=== PATIENT | female | born 1955 | race Caucasian/White ===

== ENCOUNTER → 2017-09-05 09:56 | Outpatient (CLI) | payer BC, SELFPAY ==
--- NOTE | 2017-09-05 | DI.MG.S_ITS ---
BILATERAL DIGITAL SCREENING MAMMOGRAM 3D/2D WITH CAD: 09/05/2017 CLINICAL: Routine screening. Comparison is made to exams dated: 12/09/2008 mammogram, 05/04/2001 mammogram - [facility], and 09/04/2013 mammogram - [facility]. The tissue of both breasts is heterogeneously dense. This may lower the sensitivity of mammography. Current study was also evaluated with a Computer Aided Detection (CAD) system. No significant masses, calcifications, or other findings are seen in either breast. There has been no significant interval change. IMPRESSION: NEGATIVE There is no mammographic evidence of malignancy. A 1 year screening mammogram is recommended. This exam was interpreted at Station ID: [id number]. NOTE: For mammograms, a report in lay terms will be sent to the patient. Approximately 15% of breast malignancies will not be visualized mammographically. In the management of a palpable breast mass, a negative mammogram must not discourage biopsy of a clinically suspicious lesion. Electronically Signed By: Alina sagastume/chad:09/05/2017 12:43:18 letter sent: Normal Exam ACR BI-RADS Category 1: Negative 3341F
== END ==
PROVIDERS: PCP Family Medicine; Visit Provider Family Medicine
DX: Z12.31 Encounter for screening mammogram for malignant neoplasm of breast (principal); M81.0 Age-related osteoporosis without current pathological fracture; Z78.0 Asymptomatic menopausal state
CPT/HCPCS: 77063; 77067; 77080

== ENCOUNTER → 2018-03-09 07:58 | Outpatient (CLI) | payer BC, SELFPAY ==
--- NOTE | 2018-03-09 | DI.ECHO.S_ITS ---
[place] [facility]---------+ [facility] +---------+ : : [address] : : : : [place] : : : : [id number] : : : : Phone: [phone]+ Echocardiogram Report + + :Name: ELISSA TRINH Study Date: 03/09/2018 Height: 66 in : :[facility] Exam Location: IS Weight: 125 lb : : Gender: Female BSA: 1.6 m2 : :: 1955 Age: 63 yrs BP: 110/62 mmHg: :Reason For Study: ARRHYTHMIA : : Performed By: Yannick Thibodeaux : :Referring: PALOMO ALVAREZ L : + + Interpretation Summary The left ventricle is normal in size. Left ventricular systolic function is normal without focal wall motion abnormalities. The ejection fraction is estimated to be 60-65%. Diastolic parameters suggest probable normal left ventricular diastolic function and normal filling pressures. The right ventricle is normal in size and function. The right ventricular systolic pressure is estimated to be at least 22 mmHg based on an estimated right atrial pressure of 3 mm Hg. The left atrium is mildly dilated. Right atrial size is normal. There is no significant valvular heart disease. The ascending aorta is mildly enlarged. Procedure: A two-dimensional transthoracic echocardiogram with color flow and Doppler was performed. The study quality was technically good. There is no prior echocardiogram noted for this patient. The patient was in normal sinus rhythm during the exam. The patient had occasional PACs during the exam. Left Ventricle: The left ventricle is normal in size. There is normal left ventricular wall thickness. Left ventricular systolic function is normal without focal wall motion abnormalities. The ejection fraction is estimated to be 60-65%. Diastolic parameters suggest probable normal left ventricular diastolic function and normal filling pressures. Right Ventricle: The right ventricle is normal in size and function. Atria: The left atrium is mildly dilated. Right atrial size is normal. The interatrial septum is intact with no evidence for an atrial septal defect. Mitral Valve: The mitral valve is normal in structure and function. There is trace mitral regurgitation. Aortic Valve: The aortic valve is trileaflet. The aortic valve opens well. There is trace aortic regurgitation. Tricuspid Valve: The tricuspid valve is normal in structure and function. There is mild tricuspid regurgitation. The right ventricular systolic pressure is estimated to be at least 22 mmHg based on an estimated right atrial pressure of 3 mm Hg. Pulmonic Valve: The pulmonic valve is normal in structure and function. There is trace pulmonic regurgitation. There is no significant valvular heart disease. Great Vessels: The aortic root is normal size. The ascending aorta is mildly enlarged. The pulmonary artery is normal size. The IVC is of normal diameter and collapses greater than 50% with a sniff. This suggests a low right atrial pressure of 3 mm Hg. Pericardium/ Pleura There is no pericardial effusion. There is no pleural effusion. MMode/2D Measurements & Calculations LVIDd: 4.4 cm Ao root diam: 3.4 cm LVIDs: 2.6 cm Aortic Jxn: 2.5 cm FS: 41.1 % asc Aorta Diam: 3.8 cm EPSS: 0.11 cm IVSd: 0.75 cm LVPWd: 0.60 cm LV bautista. diameter/BSA (cm/m^2): 2.7 LV sys. diameter/BSA (cm/m^2): 1.6 LA dimension: 2.7 cm RA long axis: 4.9 cm LA A2 area: 19.3 cm2 RA area: 13.3 cm2 LA A4 area: 18.7 cm2 RA vol: 31.0 ml LA length (vol): 5.1 cm RA : 18.9 ml/m2 LA vol: 59.9 ml IVC diam: 1.7 cm LA vol index: 36.6 ml/m2 RVD1 (basal): 3.0 cm RVD2 (mid): 3.3 cm Doppler Measurements & Calculations Ao V2 max: 140.0 cm/sec LVOT Max Nas: 112.5 cm/sec Ao V2 mean: 103.4 cm/sec LV V1 max P.1 mmHg Ao max P.8 mmHg LV V1 VTI: 20.8 cm Ao mean P.7 mmHg sev ratio: 0.74 Ao V2 VTI: 28.1 cm MV E max nas: 53.5 cm/sec TR max nas: 217.7 cm/sec MV A max nas: 40.8 cm/sec TR max P.9 mmHg MV E/A: 1.3 PA V2 max: 83.2 cm/sec Med Peak E' Nas: 6.5 cm/sec PA V2 mean: 63.5 cm/sec E/E' med: 8.2 PA mean P.7 mmHg Lat Peak E' Nas: 11.4 cm/sec PA pr(Accel): 12.5 mmHg E/E' lat: 4.7 PA Accel Time: 0.14 sec E/e' average: 6.5 MV dec time: 0.13 sec Pulm Aram Oro Nas: 35.4 cm/sec Reading Physician:TOOTIE
== END ==
PROVIDERS: PCP Family Medicine; Visit Provider Family Medicine
DX: I07.1 Rheumatic tricuspid insufficiency (principal); I49.9 Cardiac arrhythmia, unspecified; R10.11 Right upper quadrant pain
CPT/HCPCS: 93306

== ENCOUNTER → 2018-04-06 08:12 | Outpatient (CLI) | payer BC, SELFPAY ==
--- NOTE | 2018-04-06 | DI.US.S_ITS ---
PROCEDURE: US ABDOMEN COMPLETE INDICATIONS: RIGHT UPPER QUADRANT PAIN TECHNIQUE: Real-time scanning was performed of the abdominal and retroperitoneal organs, with image documentation. COMPARISON: None. FINDINGS: Liver: Liver is normal in size and homogeneous in echotexture. Gallbladder: The gallbladder is normal in size without gallbladder wall thickening or pericholecystic fluid. A 7 mm mobile gallstone is present within the gallbladder. Biliary ducts: Intrahepatic bile ducts are non-dilated. Extrahepatic bile duct caliber measures 5 mm. Normal is 6-7 mm or less in diameter, or 10 mm or less post-cholecystectomy. Pancreas: Visualized portions of the pancreas are sonographically normal. Spleen: Spleen is normal in size and homogeneous in echotexture. Kidneys: Kidneys are normal in size and echotexture. Right kidney measures 9.8 cm long; left kidney measures 9.1 cm long. No hydronephrosis or nephrolithiasis. No solid masses. Aorta: Visualized aorta is normal in caliber at less than 3 cm. there is aortic atherosclerosis. Iliacs: Proximal common iliac arteries are normal in caliber at less than 2.5 cm. IVC: Intrahepatic inferior vena cava is patent. Miscellaneous: No free abdominal fluid. IMPRESSION: 1. Cholelithiasis without evidence of acute cholecystitis. 2. Unremarkable kidneys. No hydronephrosis. Dictated by: Jonah Cunha M.D. on 04/06/2018 at 8:24 Approved by: Jonah Cunha M.D. on 04/06/2018 at 8:26
== END ==
PROVIDERS: PCP Family Medicine; Visit Provider Family Medicine
DX: K80.20 Calculus of gallbladder without cholecystitis without obstruction (principal); R10.11 Right upper quadrant pain
CPT/HCPCS: 76700

== ENCOUNTER → 2021-05-06 08:20 | Outpatient (CLI) | payer BC, SELFPAY ==
--- NOTE | 2021-05-06 | DI.MG.S_ITS ---
BILATERAL DIGITAL SCREENING MAMMOGRAM 3D/2D WITH CAD: 05/06/2021 CLINICAL: Routine screening. Comparison is made to exams dated: 09/05/2017 mammogram, 09/04/2013 mammogram - [facility], and 12/09/2008 mammogram - [facility]. The tissue of both breasts is heterogeneously dense. This may lower the sensitivity of mammography. Current study was also evaluated with a Computer Aided Detection (CAD) system. There are benign post operative findings in both breasts. No significant masses, calcifications, or other findings are seen in either breast. There has been no significant interval change. IMPRESSION: BENIGN There is no mammographic evidence of malignancy. A 1 year screening mammogram is recommended. This exam was interpreted at Station ID: [id number]. NOTE: For mammograms, a report in lay terms will be sent to the patient. Approximately 15% of breast malignancies will not be visualized mammographically. In the management of a palpable breast mass, a negative mammogram must not discourage biopsy of a clinically suspicious lesion. Electronically Signed By: Pedro vazquez/chad:05/06/2021 09:57:49 letter sent: Normal Exam ACR BI-RADS Category 2: Benign Finding(s) 3342F
== END ==
PROVIDERS: PCP Family Medicine; Referring Provider Family Medicine; Visit Provider Family Medicine
DX: Z12.31 Encounter for screening mammogram for malignant neoplasm of breast (principal)
CPT/HCPCS: 77063; 77067

== ENCOUNTER → 2021-06-02 09:12 | Outpatient (CLI) | payer BC, SELFPAY ==
--- NOTE | 2021-06-02 | DI.RAD.S_ITS ---
PROCEDURE: XR CERVICAL SPINE 2V OR 3V INDICATIONS: Radiculopathy, cervical region TECHNIQUE: Three views of the cervical spine were acquired. COMPARISON: None. FINDINGS: Bones: No acute fractures or dislocations to the T1 level. Mild grade 1 retrolisthesis of C3 on C4. The lateral masses of C1 appear intact on the odontoid view. No suspicious bony lesions. Multilevel disc space narrowing and degenerative endplate changes are seen and there is multilevel uncovertebral joint and facet hypertrophy. No cervical ribs. Soft tissues: No prevertebral soft tissue swelling. IMPRESSION: No acute osseous abnormality. Mild grade 1 retrolisthesis of C3 on C4 is most likely degenerative. Multilevel spondylosis. Cervical spine MRI could be obtained for further evaluation if indicated clinically. Dictated by: Dejon Fierro M.D. on 06/02/2021 at 13:34 Approved by: Dejon Fierro M.D. on 06/02/2021 at 13:36
== END ==
PROVIDERS: PCP Family Medicine; Referring Provider Family Medicine; Visit Provider Family Medicine
DX: S09.90XA Unspecified injury of head, initial encounter (principal); M47.22 Other spondylosis with radiculopathy, cervical region
CPT/HCPCS: 72040

== ENCOUNTER → 2024-03-11 09:44 | Outpatient (CLI) | payer BC, SELFPAY ==
--- NOTE | 2024-03-11 09:45 | DI.CT.S_ITS ---
PROCEDURE: CT HEAD/BRAIN WO CON INDICATIONS: Insomnia TECHNIQUE: Noncontrast 4.5 mm thick angled axial sections acquired from the foramen magnum to the vertex, with coronal and sagittal reformats. For radiation dose reduction, the following was used: automated exposure control, adjustment of mA and/or kV according to patient size. COMPARISON: None. FINDINGS: Image quality: Diagnostic. CSF spaces: Basal cisterns are patent. No extra-axial fluid collections. The ventricles are symmetric in size and shape. Brain: No intracranial bleeds or masses. There is cerebral volume loss for age, with resultant ventricular and sulcal prominence. There are periventricular and deep white matter chronic small vessel ischemic changes. There is intracranial internal carotid artery atherosclerosis. Skull and face: Calvarium and visualized facial bones appear intact, without suspicious lesions. Sinuses: Visualized sinuses and mastoids are clear. IMPRESSION: No imaging explanation is found for this patient's presenting symptoms. Unremarkable intracranial study for age. To the limits of this noncontrast study, no findings of intracranial masses or mass effect can be seen. Dictated by: Marc Schaefer M.D. on 03/11/2024 at 10:04 Approved by: Marc Schaefer M.D. on 03/11/2024 at 10:04
== END ==
LOC: CT 09:44
PROVIDERS: PCP Family Medicine; Referring Provider Family Medicine; Visit Provider Family Medicine
DX: G47.00 Insomnia, unspecified (principal); I65.29 Occlusion and stenosis of unspecified carotid artery
CPT/HCPCS: 70450

== ENCOUNTER → 2024-08-09 09:59 | Outpatient (CLI) | payer BC, SELFPAY ==
--- NOTE | 2024-08-09 10:01 | DI.RAD.S_ITS ---
PROCEDURE: XR FOOT RT MIN 3V INDICATIONS: Pain in unspecified toe(s) TECHNIQUE: 3 views of the foot were acquired. COMPARISON: None. FINDINGS: Bones: No fractures or dislocations. No suspicious bony lesions. Scattered IP degenerative change. Soft tissues: No tibiotalar joint effusion. Achilles tendon appears normal. IMPRESSION: No visualized acute fracture or dislocation. However, if clinical concern and/or pain persist, short interval imaging followup in 7-10 days is recommended, as occult injury cannot be definitively excluded. Dictated by: Minerva Argueta M.D. on 08/09/2024 at 12:51 Approved by: Minerva Argueta M.D. on 08/09/2024 at 12:51
== END ==
PROVIDERS: PCP Family Medicine; Referring Provider Family Medicine; Visit Provider Family Medicine
DX: M79.676 Pain in unspecified toe(s) (principal)
CPT/HCPCS: 73630

== ENCOUNTER → 2024-09-17 09:25 | Outpatient (CLI) | payer BC, SELFPAY ==
--- NOTE | 2024-09-17 09:27 | DI.MG.S_ITS ---
MM screening mammo BI: 09/17/2024. BI-RADS: 2 CLINICAL: 69-year old female for bilateral screening mammogram. Tyrer-Cuzick lifetime risk of 5.5%. No personal or first-degree family history of breast cancer. The patient had prior bilateral breast biopsies. PRIOR EXAMS 05/06/2021, 09/05/2017. MAMMOGRAPHY TECHNIQUE: 2D and 3D (tomosynthesis) digital mammographic views obtained, with additional images as needed for full coverage. Current study was also evaluated with a Computer Aided Detection (CAD) system. DENSITY C. The breasts are heterogeneously dense, which may obscure small masses. MAMMOGRAPHY FINDINGS Bilateral: Benign-appearing post-surgical changes noted. There are no suspicious masses, calcifications, or other findings in the breast. IMPRESSION: * No evidence of malignancy with benign findings. RECOMMENDATIONS Bilateral * Annual screening mammography. OVERALL ASSESSMENT CATEGORY BI-RADS-2: Benign. [employer] recommends annual screening mammography beginning at age 40 for women with average risk of breast cancer. ELECTRONICALLY SIGNED: Billy Nj M.D. on 09/17/2024 at 04:52:10 PM PT Interpreting Station ID: [id number]
== END ==
LOC: MAMMO 09:26
PROVIDERS: PCP Family Medicine; Referring Provider Family Medicine; Visit Provider Family Medicine
DX: Z12.31 Encounter for screening mammogram for malignant neoplasm of breast (principal); R92.333 Mammographic heterogeneous density, bilateral breasts
CPT/HCPCS: 77063; 77067

== ENCOUNTER → 2025-02-05 09:43 | Outpatient (CLI) | payer BC, SELFPAY ==
--- NOTE | 2025-02-05 09:44 | DI.RAD.S_ITS ---
PROCEDURE: XR DEXA AXIAL SKELETON
== END ==
LOC: RAD 09:44
PROVIDERS: PCP Family Medicine; Referring Provider Obstetrics & Gynecology; Visit Provider Obstetrics & Gynecology
DX: M81.0 Age-related osteoporosis without current pathological fracture (principal); Z78.0 Asymptomatic menopausal state
CPT/HCPCS: 77080